=== PATIENT | female | born 1940 | race Caucasian/White ===

== ENCOUNTER 2018-11-22 16:01 | Outpatient (CLI) | payer MEDICARE, BC ==
--- NOTE | 2018-11-22 17:01 | XRAY Report ---
Reason: PAIN IN RIGHT HIP Procedure Date: 11/22/2018 Accession Number: [id number] / [id number] Procedure: XR - Hip w/Pelvis 2-3V RT CPT Code: FULL RESULT: EXAM: RIGHT HIP RADIOGRAPHY EXAM DATE: 11/22/2018 04:29 PM. CLINICAL HISTORY: Pain in right hip. COMPARISON: None. TECHNIQUE: 2 views. FINDINGS: Bones: Normal. No fractures or bone lesion. Joints: There is symmetric moderate degenerative arthritis of both hip joints with moderate marginal osteophyte mostly of the femoral heads. Milder marginal osteophyte noted of the acetabula. SI joint within expected limits. Degenerative facet changes noted at L4-L5 and L5-S1. Soft Tissues: Normal. No soft tissue swelling. IMPRESSION: No acute fracture or malalignment. Symmetric osteoarthritis of the hips. RADIA
== END 2018-11-22 16:02 | disposition home or self-care (01) ==
LOC: DI 16:01
PROVIDERS: ATTEND Nurse Practitioner Family
DX: M16.0 Bilateral primary osteoarthritis of hip (principal)

== ENCOUNTER 2023-11-25 07:00 | Day surgery (SDC) | payer MEDICARE, OTHER ==
[2023-11-25] MEDS: LACTATED RINGERS 1,000 ML IV ONE (07:10)
[2023-11-25] MEDS: KETOROLAC 0.45% OPHTH DROPS ONE (07:20)
[2023-11-25] MEDS: PHENYLEPHRINE 2.5% OPHTH 2 ML DROPS ONE (07:20)
[2023-11-25] MEDS: PROPARACAINE 0.5% OPHTH DROPS 15 ML ONE (07:20)
[2023-11-25] MEDS ORDERED: TRIAMCIN/MOXIFLOX OPHTHALMIC 0.6 ML VIAL IO ONE (07:34)
[2023-11-25] MEDS ORDERED: TIMOLOL 0.5% OPHTH DROPS ONE (07:34)
[2023-11-25] MEDS ORDERED: BRIMONIDINE 0.2% OPHTH DROPS 5 ML ONE (07:34)
[2023-11-25] MEDS ORDERED: BSS/LIDOCAINE/EPINEPHRINE 1 ML VIAL ONE (07:34)
[2023-11-25] MEDS ORDERED: EPINEPHrine 1 MG/ML AMP ONE (07:34)
[2023-11-25] MEDS ORDERED: MIDAZOLAM 2 MG/2 ML VIAL ONE (07:37)
[2023-11-25] MEDS: EPINEPHrine 1 MG/ML AMP IR ONE (07:47)
[2023-11-25] MEDS: TIMOLOL 0.5% OPHTH DROPS OPTH ONE (07:47)
[2023-11-25] MEDS: BRIMONIDINE 0.2% OPHTH DROPS 5 ML OPTH ONE (07:47)
[2023-11-25] MEDS: TRIAMCIN/MOXIFLOX OPHTHALMIC 0.6 ML VIAL IO ONE (07:48)
[2023-11-25] MEDS: PROPARACAINE 0.5% OPHTH DROPS 15 ML EACHEYE ONE (07:48)
[2023-11-25] MEDS: BSS/LIDOCAINE/EPINEPHRINE 1 ML SYRINGE IO ONE (07:48)
[2023-11-25] MEDS: VANCOMYCIN OPHTH (TOPICAL) 10 MG/ML SYRINGE TOP ONE (07:48)
--- NOTE | 2023-11-25 07:50 | ANESTHESIA ---
Pre-Anesthesia VS, & Labs - Diagnosis right cataract - Procedure right cataract extraction with IOL Height: 5 ft 3 in Weight (kg): 78 kg Body Mass Index: 30.4 BMI Classification: Obese - NPO Other - Is Patient ?: No Home Medications and Allergies Home Medications: Ambulatory Orders Acetaminophen [Tylenol] 500 mg PO Q4-6H 11/24/23 Multivitamin 1 tab PO DAILY 11/24/23 Acetaminophen [Tylenol] 500 mg PO Q4-6H 11/24/23 Multivitamin 1 tab PO DAILY 11/24/23 Allergies/Adverse Reactions: Allergies Allergy/AdvReac Type Severity Reaction Status Date / Time Sulfa (Sulfonamide Allergy Rash Verified 11/24/23 12:16 Antibiotics) Anes History & Medical History - Anesthetic History Anesthesia Complications: reports: No previous complications - Medical History Cardiovascular: reports: None Pulmonary: reports: None Gastrointestinal: reports: None Urinary: reports: None Musculoskeletal: reports: Osteoarthritis Endocrine/Autoimmune: reports: None Skin: reports: None - Surgical History General: reports: Colonoscopy Eyes Ears Nose Throat (EENT): reports: Other Urologic: reports: Bladder surgery Gynecologic: reports: Hysterectomy Exam General: Alert Dental: WNL Mouth Opening: Greater than 4 Fingerbreadths Neck Mobility: Normal Mallampati classification: II Respiratory: Lungs clear Cardiovascular: Regular rate Plan Anesthesia Type: MAC Consent for Procedure(s) Verified and Reviewed: Yes Code Status: Attempt Resuscitation ASA classification: 2-Mild systemic disease Is this case an emergency?: No
[2023-11-25] MEDS: LACTATED RINGERS 500 ML IV ONE (08:25)
--- NOTE | 2023-11-25 08:37 | OPERATIVE REPORT ---
Operative Report - Other Other Information/Narrative: Date of Surgery: 11/25/23 Preop Dx: Visually significant cataract left eye. This was the first cataract surgery. Postop Dx: Same Procedure: Phacoemulsification with posterior chamber intraocular lens implant left eye Surgeon: Dr. Jimmie Deal Anesthesia: Monitored anesthesia care Complications: None Operative Indications: This is a 82-year-old F with progressive vision loss in the left eye due to 3+ nuclear sclerotic and 3+ cortical cataract. Best corrected visual acuity was 20/50 with glare to 20/200 vision in the left eye. Indications for surgery were: - Overall decrease in vision - Difficulty seeing words on a computer screen - Difficulty reading - Difficulty seeing words, closed captions, or game scores on TV - Difficulty driving in low light or at night - Difficulty driving at night because of headlights from other vehicles - Difficulty with glare or bright lights in any situation The patient was consented at length concerning the risks and benefits of cataract surgery after which the patient expressed a desire to proceed with surgery. Operative Procedure: The patient was taken into OR#3 and placed under monitored anesthesia care. A surgical time-out was conducted confirming correct patient, correct procedure, and correct surgical site. The patient was given topical anesthesia and then prepped and draped in the usual sterile fashion. The eye was entered at the 6 and 3 oclock positions. Intracameral Shugarcaine was injected into the anterior chamber followed by a dispersive viscoelastic. A continuous-tear curvilinear capsulorhexis was performed. The nucleus was hydrodissected and phacoemulsified. The cortex was evacuated using automated infusion and aspiration. A cohesive viscoelastic was injected into the capsular bag and a 24.0 diopter intraocular lens was inserted into the bag. Infusion and aspiration were used to evacuate the viscoelastic materials from the eye. The wounds were hydrated and the eye inflated to physiologic pressure using balanced salt solution. Approximately 0.25ml of a mixture of triamcinolone and moxifloxacin was injected trans-sclerally into the vitreous in the inferotemporal quadrant using a 30 gauge cannula. An additional 0.25ml of a mixture of triamcinolone and moxifloxacin was injected subconjunctivally in the superior quadrant for infection and inflammation prophylaxis. Wound integrity was checked with Weck-Sherie sponges. The patient was taken from the operating room in good condition and given post-op instructions.
[2023-11-25 08:40] VITALS: BP 125/56; O2SAT 98
--- NOTE | 2023-11-25 08:41 | ANESTHESIA POST OP EVALUATION ---
Anesthesia Post Eval - Post Anesthesia Eval Vitals: Last Vital Signs Temp 36.3 C L 11/25/23 08:25 Pulse 67 11/25/23 08:35 Resp 18 11/25/23 08:35 BP 125/56 L 11/25/23 08:35 Pulse Ox 98 11/25/23 08:35 O2 Flow Rate CV Function Including HR & BP: Stable Pain Control: Satisfactory Nausea & Vomiting: Negative Mental Status: Baseline Respiratory Status: Airway Patent Hydration Status: Satisfactory Anesthesia Complications: None
--- NOTE | 2023-11-25 14:12 | OPERATIVE REPORT ---
Operative Report - Procedure Note Indications: Date of Surgery: 11/25/23 This is an amended OpReport as the original was mistaken written for left eye vice right eye. Preop Dx: Visually significant cataract right eye. This was the first cataract surgery. Postop Dx: Same Procedure: Phacoemulsification with posterior chamber intraocular lens implant right eye Surgeon: Dr. Jimmie Deal Anesthesia: Monitored anesthesia care Complications: None Operative Indications: This is a 82-year-old F with progressive vision loss in the right eye due to 3+ nuclear sclerotic and 3+ cortical cataract. Best corrected visual acuity was 20/50 with glare to 20/200 vision in the right eye. Indications for surgery were: - Overall decrease in vision - Difficulty seeing words on a computer screen - Difficulty reading - Difficulty seeing words, closed captions, or game scores on TV - Difficulty driving in low light or at night - Difficulty driving at night because of headlights from other vehicles - Difficulty with glare or bright lights in any situation The patient was consented at length concerning the risks and benefits of cataract surgery after which the patient expressed a desire to proceed with surgery. Operative Procedure: The patient was taken into OR#3 and placed under monitored anesthesia care. A surgical time-out was conducted confirming correct patient, correct procedure, and correct surgical site. The patient was given topical anesthesia and then prepped and draped in the usual sterile fashion. The eye was entered at the 6 and 3 oclock positions. Intracameral Shugarcaine was injected into the anterior chamber followed by a dispersive viscoelastic. A continuous-tear curvilinear capsulorhexis was performed. The nucleus was hydrodissected and phacoemulsified. The cortex was evacuated using automated infusion and aspiration. A cohesive viscoelastic was injected into the capsular bag and a 24.0 diopter intraocular lens was inserted into the bag. Infusion and aspiration were used to evacuate the viscoelastic materials from the eye. The wounds were hydrated and the eye inflated to physiologic pressure using balanced salt solution. Approximately 0.25ml of a mixture of triamcinolone and moxifloxacin was injected trans-sclerally into the vitreous in the inferotemporal quadrant using a 30 gauge cannula. An additional 0.25ml of a mixture of triamcinolone and moxifloxacin was injected subconjunctivally in the superior quadrant for infection and inflammation prophylaxis. Wound integrity was checked with Weck-Sherie sponges. The patient was taken from the operating room in good condition and given post-op instructions.
== END 2023-11-25 07:01 | disposition home or self-care (01) ==
LOC: SDS 07:00
PROVIDERS: ATTEND Ophthalmology
DX: H25.811 Combined forms of age-related cataract, right eye (principal); E66.9 Obesity, unspecified; Z68.30 Body mass index [BMI] 30.0-30.9, adult
CPT/HCPCS: 66984; A9270; J3490; J7120

== ENCOUNTER 2024-01-13 09:24 | Day surgery (SDC) | payer MEDICARE ==
[2024-01-13] MEDS: LACTATED RINGERS 1,000 ML IV ONE ×2 (09:50→11:42)
[2024-01-13] MEDS: PROPARACAINE 0.5% OPHTH DROPS 15 ML ONE (09:51)
[2024-01-13] MEDS: KETOROLAC 0.45% OPHTH DROPS ONE (09:51)
[2024-01-13] MEDS: PHENYLEPHRINE 2.5% OPHTH 2 ML DROPS ONE (10:00)
[2024-01-13] MEDS ORDERED: EPINEPHrine 1 MG/ML AMP ONE (10:12)
[2024-01-13] MEDS ORDERED: TIMOLOL 0.5% OPHTH DROPS ONE (10:12)
[2024-01-13] MEDS ORDERED: TRIAMCIN/MOXIFLOX OPHTHALMIC 0.6 ML VIAL IO ONE (10:12)
[2024-01-13] MEDS ORDERED: BRIMONIDINE 0.2% OPHTH DROPS 5 ML ONE (10:12)
[2024-01-13] MEDS ORDERED: BSS/LIDOCAINE/EPINEPHRINE 1 ML VIAL ONE (10:13)
--- NOTE | 2024-01-13 10:22 | ANESTHESIA ---
Pre-Anesthesia VS, & Labs - Diagnosis cataract - Procedure PhacoIOL Vital Signs: Temp Pulse Resp BP Pulse Ox O2 Flow Rate 36.8 C 61 16 137/57 H 100 01/13/24 09:50 01/13/24 09:50 01/13/24 09:50 01/13/24 09:50 01/13/24 09:50 Height: 5 ft 4 in Weight (kg): 79.2 kg Body Mass Index: 29.9 BMI Classification: Overweight - NPO >8 hours - Is Patient ?: No Home Medications and Allergies Acetaminophen [Tylenol] 500 mg PO Q4-6H 11/24/23 Multivitamin 1 tab PO DAILY 11/24/23 Allergies/Adverse Reactions: Allergies Allergy/AdvReac Type Severity Reaction Status Date / Time Sulfa (Sulfonamide Allergy Rash Verified 01/13/24 10:09 Antibiotics) Anes History & Medical History - Anesthetic History Anesthesia Complications: reports: No previous complications Family history of Anesthesia Complications: Denies Family history of Malignant Hyperthermia: Denies - Medical History Cardiovascular: reports: None Pulmonary: reports: None Gastrointestinal: reports: None Urinary: reports: None Musculoskeletal: reports: Osteoarthritis Endocrine/Autoimmune: reports: None, Other Skin: reports: None Psychosocial: reports: No issues indicated - Surgical History General: reports: Colonoscopy Eyes Ears Nose Throat (EENT): reports: Other Urologic: reports: Bladder surgery Gynecologic: reports: Hysterectomy Exam General: Alert, Oriented x3, Cooperative Dental: WNL Mouth Openin Fingerbreadth Neck Mobility: Normal Mallampati classification: II Thyromental Distance: 4-6 cm Respiratory: Lungs clear Cardiovascular: Regular rate Plan Anesthesia Type: MAC Consent for Procedure(s) Verified and Reviewed: Yes Code Status: Attempt Resuscitation ASA classification: 2-Mild systemic disease Is this case an emergency?: No
[2024-01-13] MEDS ORDERED: MIDAZOLAM 2 MG/2 ML VIAL ONE (11:13)
[2024-01-13] MEDS: TIMOLOL 0.5% OPHTH DROPS OPTH ONE (11:30)
[2024-01-13] MEDS: TRIAMCIN/MOXIFLOX OPHTHALMIC 0.6 ML VIAL IO ONE (11:30)
[2024-01-13] MEDS: BRIMONIDINE 0.2% OPHTH DROPS 5 ML OPTH ONE (11:30)
[2024-01-13] MEDS: BSS/LIDOCAINE/EPINEPHRINE 1 ML SYRINGE IO ONE (11:30)
[2024-01-13] MEDS: EPINEPHrine 1 MG/ML AMP IR ONE (11:30)
[2024-01-13] MEDS: PROPARACAINE 0.5% OPHTH DROPS 15 ML LEFTEYE ONE (11:31)
[2024-01-13] MEDS: VANCOMYCIN OPHTH (TOPICAL) 10 MG/ML SYRINGE TOP ONE (11:31)
--- NOTE | 2024-01-13 11:54 | OPERATIVE REPORT ---
Operative Report - Other Other Information/Narrative: Date of Surgery: 01/13/24 Preop Dx: Visually significant cataract left eye. Cataract surgery was performed in the right eye on [id number]. Postop Dx: Same Procedure: Phacoemulsification with posterior chamber intraocular lens implant left eye Surgeon: Dr. Jimmie Deal Anesthesia: Monitored anesthesia care Complications: None Operative Indications: This is a 83-year-old F with progressive vision loss in the left eye due to 3+ nuclear sclerotic and 3+ cortical cataract. Best corrected visual acuity was 20/40 with glare to 20/70 vision in the left eye. Indications for surgery were: - Overall decrease in vision - Difficulty reading - Difficulty seeing words, closed captions, or game scores on TV - Difficulty driving in low light or at night - Difficulty driving at night because of headlights from other vehicles The patient was consented at length concerning the risks and benefits of cataract surgery after which the patient expressed a desire to proceed with surgery. Operative Procedure: The patient was taken into OR#3 and placed under monitored anesthesia care. A surgical time-out was conducted confirming correct patient, correct procedure, and correct surgical site. The patient was given topical anesthesia and then prepped and draped in the usual sterile fashion. The eye was entered at the 6 and 3 oclock positions. Intracameral Shugarcaine was injected into the anterior chamber followed by a dispersive viscoelastic. A continuous-tear curvilinear capsulorhexis was performed. The nucleus was hydrodissected and phacoemulsified. The cortex was evacuated using automated infusion and aspiration. A cohesive viscoelastic was injected into the capsular bag and a 24.0 diopter intraocular lens was inserted into the bag. Infusion and aspiration were used to evacuate the viscoelastic materials from the eye. The wounds were hydrated and the eye inflated to physiologic pressure using balanced salt solution. Approximately 0.25ml of a mixture of triamcinolone and moxifloxacin was injected trans-sclerally into the vitreous in the inferotemporal quadrant using a 30 gauge cannula. An additional 0.25ml of a mixture of triamcinolone and moxifloxacin was injected subconjunctivally in the superior quadrant for infection and inflammation prophylaxis. Wound integrity was checked with Weck-Sherie sponges. The patient was taken from the operating room in good condition and given post-op instructions.
[2024-01-13 12:14] VITALS: BP 141/57; O2SAT 98
--- NOTE | 2024-01-13 12:55 | ANESTHESIA POST OP EVALUATION ---
Anesthesia Post Eval - Post Anesthesia Eval Vitals: Last Vital Signs Temp 36.8 C 01/13/24 12:05 Pulse 59 L 01/13/24 12:05 Resp 16 01/13/24 12:05 BP 141/57 H 01/13/24 12:05 Pulse Ox 98 01/13/24 12:05 O2 Flow Rate CV Function Including HR & BP: Stable Pain Control: Satisfactory Nausea & Vomiting: Negative Mental Status: Baseline Respiratory Status: Airway Patent Hydration Status: Satisfactory Anesthesia Complications: None
== END 2024-01-13 09:25 | disposition home or self-care (01) ==
LOC: SDS 09:24
PROVIDERS: ATTEND Ophthalmology
DX: H25.812 Combined forms of age-related cataract, left eye (principal); Z98.41 Cataract extraction status, right eye
CPT/HCPCS: 66984; A9270; J3490; J7120